=== PATIENT | female | born 1975 | race Caucasian/White ===

== ENCOUNTER → 2024-10-08 | Day surgery (SDC) | payer OTHER | END | disposition home or self-care (01) | LOC: JRADUS-SUR 09:11 | PROVIDERS: ATTEND Specialist | PROC: 0H9V3ZX Drainage of Bilateral Breast, Percutaneous Approach, Diagnostic (ICD-10-PCS; principal; 2024-10-08) | DX: D24.1 Benign neoplasm of right breast (principal); N60.22 Fibroadenosis of left breast | CPT/HCPCS: 19083; 19084; 76942-TC; 77066-TC; 87899; 88305-TC; 88341-TC; 88342-TC; A4648 ==